=== PATIENT | male | born 1985 | race Two or more races ===

== ENCOUNTER 2020-02-29 15:43 | Emergency (ER) | payer OTHER ==
[~2020-02-29] VITALS: Ht 170.2 cm; Wt 70.3 kg
[2020-02-29 15:54] VITALS: BP 105/76
[2020-02-29] MEDS ORDERED: KETOROLAC TROMETH 60MG/2ML VIAL IM ONE (17:30)
[2020-02-29] MEDS ORDERED: BENZOCAINE (DENTAL) 20 % SPRAY 60ML MT ONE (17:30)
[2020-02-29] MEDS ORDERED: cefTRIAXone SOD 1,000 MG VL IM ONE (17:30)
[2020-02-29] MEDS ORDERED: LIDOCAINE 1% HCL (LOCAL ANESTH.) INJ 20ML MDV IJ ONE (17:45)
== END 2020-02-29 18:00 | disposition home or self-care (01) ==
LOC: ER 15:43
DX: K04.7 Periapical abscess without sinus (principal); F17.210 Nicotine dependence, cigarettes, uncomplicated; F12.10 Cannabis abuse, uncomplicated
CPT/HCPCS: 41800; 96372; 99284; J0696; J2001; 10060